=== PATIENT | male | born 1955 | race Caucasian/White ===

== ENCOUNTER 2022-07-16 12:48 | Emergency (ER) | payer MEDICARE, MEDICAID ==
[~2022-07-16] VITALS: Ht 170.2 cm; Wt 91.0 kg
[2022-07-16] MEDS ORDERED: acetaminophen 325mg tablet PO ONE (13:15)
[2022-07-16] MEDS ORDERED: ibuprofen tablet 400 MG TABLET PO ONE (13:15)
--- NOTE | 2022-07-16 14:28 | NUR ---
PT READY FOR DISCHARGE CONTACTED [facility]
[2022-07-16 14:38] VITALS: BP 144/89
== END 2022-07-16 14:39 | disposition home or self-care (01) ==
LOC: ER 12:49
DX: M25.552 Pain in left hip (principal); Z88.0 Allergy status to penicillin
CPT/HCPCS: 72170; 99284

== ENCOUNTER 2022-10-04 09:33 | Emergency (ER) | payer MEDICARE, MEDICAID ==
[~2022-10-04] VITALS: Ht 170.2 cm; Wt 86.4 kg
[2022-10-04] MEDS ORDERED: oxyCODONE/APAP 5-325mg tablet PO ONE (10:15)
[2022-10-04] MEDS ORDERED: OXYC-145 PO ×3 (10:16→12:06)
[2022-10-04 10:42] VITALS: BP 161/87
--- NOTE | 2022-10-04 11:37 | NUR ---
PT UNABLE TO UNDERSTAND HOW TO USE CRUTCHES. RN EDUCATED PT HOW TO USE A WALKER PT WAS ABLE TO AMBULATE WITH THE WALKER AND STATED THAT IT DOES HELP WITH THE PAIN HE HAS WITH WALKING. RN NOTIFIED DR DAWN AND PER DR DAWN PT MAY BE DISCHARGED WITH WALKER. RN NOTIFIED FARRUKH DILLARD.
--- NOTE | 2022-10-04 11:51 | NUR ---
I called [facility] where patient lives. I let the staff know that patient is being discharge today. Result of hip x-ray was discussed with the staff and I also let the staff know that patient was able to walk using a walker and that patient has prescription for Bertrand to take for the hip pain. 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
== END 2022-10-04 12:12 | disposition home or self-care (01) ==
LOC: ER 09:33
DX: M25.552 Pain in left hip (principal); Z88.0 Allergy status to penicillin; Z79.899 Other long term (current) drug therapy; W19.XXXA Unspecified fall, initial encounter; Y93.89 Activity, other specified; Y92.89 Other specified places as the place of occurrence of the external cause; Y99.8 Other external cause status
CPT/HCPCS: 73502; 99284

== ENCOUNTER 2022-10-08 09:44 | Emergency (ER) | payer MEDICARE, MEDICAID ==
[~2022-10-08] VITALS: Ht 170.2 cm; Wt 75.0 kg
[~2022-10-08 09:44] MED LIST: OXYC-145 PO
[2022-10-08 10:50] VITALS: BP 148/87
[2022-10-08] MEDS ORDERED: HYDROcodone/acetaminophen 5mg/325mg tablet PO ONE (11:05)
== END 2022-10-08 11:45 | disposition home or self-care (01) ==
LOC: ER 09:44
DX: M25.552 Pain in left hip (principal); Z88.0 Allergy status to penicillin; Z79.899 Other long term (current) drug therapy
CPT/HCPCS: 72192; 99284